=== PATIENT | female | born 1950 | race African-American/Black ===

== ENCOUNTER 2016-10-03 07:58 | Inpatient (IN) | payer OTHER ==
[2016-09-26 12:26] LABS: HEMATOCRIT 34.7 % (36.0-48.0); HEMOGLOBIN 11.1 g/dL (12.0-16.0)
[2016-09-26 12:45] LABS: CALCIUM, SERUM 9.5 MG/DL (8.5-10.4); CHLORIDE, SERUM 111 MMOL/L (96-112); CO2 (CARBON DIOXIDE) 29 MMOL/L (24-34); GFR AFRICAN AMERICAN 25 ML/MIN (>=60); GFR NON AFRICAN AMERICAN 21 ML/MIN (>=60); GLUCOSE, SERUM 99 MG/DL (60-99); POTASSIUM, SERUM 4.3 MMOL/L (3.5-5.3); SODIUM, SERUM 144 MMOL/L (135-148)
[2016-09-26 12:46] LABS: BUN (BLOOD UREA NITROGEN) 37 MG/DL (6-23); CREATININE 2.34 MG/DL (0.55-1.02)
--- NOTE | ~2016-10-03 | OP ---
Record Of Operation [facility] [address] [place]. [address] NAME: WALTER OBREGON : 54 STATUS : DIS IN PAT#: [id number] AGE: 66 ADM/REG DATE : 10/03/16 MR#: [id number] REPORT SERV DATE: 10/09/16 DICTATED BY: NETTIE WHITE II DATE: 10/09/16 REPORT STATUS : Draft TRANSCRIBED BY: MODL DATE: 10/09/16 DATE OF PROCEDURE: 10/03/2016 POSTOPERATIVE DIAGNOSES: 1. L4-5 grade 2/3 spondylolisthesis. 2. Left lower extremity radiculopathy. 3. Severe stenosis. POSTOPERATIVE DIAGNOSES: 1. L4-5 grade 2/3 spondylolisthesis. 2. Left lower extremity radiculopathy. 3. Severe stenosis. PROCEDURE: 1. Lumbar laminectomy and facetectomy, L4-L5. 2. Interbody arthrodesis, L4-L5. 3. Application of prosthetic device, L4-L5. 4. Posterolateral arthrodesis, L4-L5. 5. Posterior nonsegmental instrumentation, L4-5. 6. Use of local autograft, allograft substitute, and bone morphogenic protein. 7. Use of the microscope and stereotactic spinal imaging. SURGEON: Nettie White M.D. FLUIDS: 1700 mL LR. ESTIMATED BLOOD LOSS: 80 mL. DRAINS: One drain. COMPLICATIONS: None. ANTIBIOTIC: Preoperatively. IMPLANTS: Alphatec. PREOPERATIVE HISTORY: This is a friendly 66-year-old female, suffering with low back pain, predominantly pain radiating down the left leg consistent with radiculopathy. We discussed the pros and cons of surgery and the fact that the surgery had a good success rate for decreasing radiculopathy. We discussed the fact that it may decrease back pain to a certain degree, but overall the surgery was much more effective for radicular pain. She stated understanding and wished to proceed. DESCRIPTION OF PROCEDURE: After informed consent was obtained, the patient was brought to the operating room at her request, and general anesthesia was achieved. She was placed in the prone position. The back was prepped and draped in a sterile fashion. Stereotactic Record Of Operation [facility] [address] [place] [place]. [address] NAME: WALTER OBREGON : 54 STATUS : DIS IN PAT#: [id number] AGE: 66 ADM/REG DATE : 10/03/16 MR#: [id number] REPORT SERV DATE: 10/09/16 DICTATED BY: NETTIE WHITE II DATE: 10/09/16 REPORT STATUS : Draft TRANSCRIBED BY: MADISYN DATE: 10/09/16 spinal pin was placed into the right iliac crest followed by completion of the intraoperative CT scan. The minimally invasive retractor was placed on the left at L4-5. The hypertrophic facet was identified. The transverse processes were also dissected upon. The quadrant retractor system was now well established and the microscope brought into place. Under microscopic visualization, the complete facetectomy was performed and a [id number] decompression was achieved. The spinal laminar junction was also taken down to decompress the central canal. Overall, the degree of stenosis was severe, we did achieve some reduction of the spondylolisthesis with positioning, as well as manipulation during the instrumentation portion of the case. At this point, the L4 and L5 nerve roots were found to be acceptably decompressed. The L5 nerve root was then retracted and the interbody arthrodesis initiated with diskectomy. The endplates were prepared with the curettes and the leesa. The area was now irrigated and punctate bleeding bone was identified. At this point, the prosthetic device was then placed at L4-L5. We also placed local autograft, and bone morphogenic protein into the anterior disk space. At this point, the pedicle screws were applied into L4 and L5. Percutaneous screws were placed on the right side. The repeat CT scan confirmed acceptable placement of the implants. The final tightening was performed. Next, the decortication was performed on the transverse processes of L4 and L5 on the left. Local autograft, allograft substitute, and bone morphogenic protein were placed into the gutter. A deep drain was placed followed by standard closure, and the patient was extubated, and transferred to PACU in stable condition. CINDY/MADISYN Nettie White II, M.D. / [id number] CC: Nettie White II, M.D. Cherry Marquez M.D.
--- NOTE | ~2016-10-03 | DS ---
Discharge Summary [facility] [address] [place]. [address] NAME: WALTER OBREGON : 54 STATUS : DIS IN PAT#: [id number] AGE: 66 ADM/REG DATE : 10/03/16 MR#: [id number] REPORT SERV DATE: 10/12/16 DICTATED BY: NETTIE WHITE II DATE: 10/11/16 REPORT STATUS : Draft TRANSCRIBED BY: MODJonathan DATE: 10/11/16 Data Collection from hospitalization DISCHARGE DIAGNOSIS(ES): 1. L4-5 grade 2/3 spondylolisthesis. 2. Left lower extremity radiculopathy. 3. Severe stenosis. 4. Asthma. 5. History of congestive heart failure. 6. Gastroesophageal reflux disease. 7. Glaucoma. 8. Hypertension. 9. Osteoarthritis. 10.Rheumatoid arthritis. 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 CONSULTATIONS: None. PROCEDURES PERFORMED: Lumbar laminectomy and facetectomy, L4-L5; interbody arthrodesis, L4- L5; application of prosthetic device, L4-L5; posterolateral arthrodesis, L4-L5; posterior nonsegmental instrumentation, L4-5; use of local autograft, allograft substitute, and bone morphogenetic protein; use of the microscope and stereotactic spinal imaging, 10/03/2016. PATHOLOGY: Bone and soft tissue, lumbar spine, nonspecific degenerative changes. MEDICATIONS: Lipitor 20 mg every morning, Coreg 3.125 mg twice daily, Colace 100 mg twice daily, Pepcid 20 mg at bedtime, folic acid 800 mcg daily, Neurontin 600 mg twice daily, Neurontin 300 mg at 1400 hours, Plaquenil 400 mg daily, Robaxin 500 mg twice daily, methotrexate 15 mg every seven days on Fridays, metformin ER 500 mg with supper, Symbicort two puffs twice daily, Tylenol 500 mg every 6 hours as needed, Mylanta 30 mL as needed, Dulcolax 15 mg orally as needed, Valium 2 mg every four hours as needed, milk of magnesia 30 mL twice daily as needed, Percocet 5/325 one or two every 4 hours as needed, Hyzaar one daily, Bydureon extended release 2 mg subcutaneously every seven days on Mondays, and DuoNeb as needed. CONDITION AT DISCHARGE: Upon discharge, she did appear to be doing well and had no complaints. DISPOSITION: She had been discharged with transfer to [facility] to continue an ADA diet with activity as discussed. She was to continue with both Physical Therapy and Occupational Therapy. She was also to continue oxygen at 2 L by nasal cannula. She was to follow up as directed. HOSPITAL COURSE: This 66-year-old female had presented with complaints of lumbar related symptoms. Her initial onset began greater than five years ago with no known cause. She had stated that her symptoms had increased in the past two to three months. Her pain was located primarily in the low back with occasional pain radiating down her left lower extremity with tingling in her foot. She had rated her pain level at a 7/10. She denied Discharge Summary [facility] [id number] [facility] [place]. [address] NAME: WALTER OBREGON : 54 STATUS : DIS IN [facility]#: [id number] AGE: 66 ADM/REG DATE : 10/03/16 MR#: [id number] REPORT SERV DATE: 10/12/16 DICTATED BY: NETTIE WHITE II DATE: 10/11/16 REPORT STATUS : Draft TRANSCRIBED BY: MADISYN DATE: 10/11/16 any pain upon coughing, sneezing, fever, chills, and/or night sweats. She did report a time frame of one to two weeks where she would have to change her clothing three or more times a day due to losing her bowel or bladder. She stated her symptoms were worse at night. Lying on her left side and walking would increase her pain. Resting, changing her position, and medication would help her symptoms. At the time of admission, she had been taking Neurontin to help ease her pain. She has not had any recent treatment for current symptoms. She had an MRI of the lumbar spine done on [facility] on 08/09/2016. She was now admitted for surgery and further treatment. Upon admission to the hospital, she had been taken to the operating room where she did undergo the above procedure. She had tolerated this well and was transferred to the recovery room. On postop day #1, she did appear to be stable and had no complaints. She had been evaluated by Physical Therapy. On postop day #2, she did continue to do well and had no new complaints. She was continued on supportive care. On postop day #3, she had complaints of the expected postoperative pain and did continue to do well. Her Roberson catheter was removed. She did remain in stable condition and was then discharged with the above instructions. Information collected by: Baltazar King. I submit the above information as my discharge summary. MACRINA/CHELSEYL Nettie White II, M.D. / [id number] CC: Zaida Diego II, M.D. [facility]
[~2016-10-03 07:58] MED LIST: ACET500CAP PO; ADVAIR250 INH; AMARYL1 MG PO; AMARYL2 PO; BYDUREON2 MG SQ; CHERATUSSIN OR; COREG3 PO; DUONEB INH; FOLIC ACID800 MCG PO; GLUMETZA500 MG PO; HYZAAR 100/25 T1 TAB PO; LIPITOR20 PO; MTX2.5 PO; NASONEX NAS; NEUR300 PO; NOVOPEN SC; ORPHENADRINE100 MG PO; PLAQ200B PO; PROAIR HFA INH; RANITIDINE300 MG PO; SYMBICORT 160/41 INH INH; TRADJENTA
[2016-10-03 08:35] LABS: CALCIUM, SERUM 8.9 MG/DL (8.5-10.4); CHLORIDE, SERUM 111 MMOL/L (96-112); CO2 (CARBON DIOXIDE) 30 MMOL/L (24-34); GFR AFRICAN AMERICAN 34 ML/MIN (>=60); GFR NON AFRICAN AMERICAN 29 ML/MIN (>=60); GLUCOSE, SERUM 114 MG/DL (60-99); POTASSIUM, SERUM 4.2 MMOL/L (3.5-5.3); SODIUM, SERUM 146 MMOL/L (135-148)
[2016-10-03 08:36] LABS: BUN (BLOOD UREA NITROGEN) 21 MG/DL (6-23); CREATININE 1.79 MG/DL (0.55-1.02)
[2016-10-06] MEDS ORDERED: PCET PO (12:09)
[2016-10-06] MEDS ORDERED: V2 PO (12:09)
[2016-10-06] MEDS ORDERED: METHOC500B PO (12:09)
== END 2016-10-06 16:24 | DRG 460 ==
LOC: SDC/OF 07:58 → PACU 14:20 → 3SO 15:57
PROVIDERS: Orthopaedic Surgery
PROC: 0SG00AJ Fusion of Lumbar Vertebral Joint with Interbody Fusion Device, Posterior Approach, Anterior Column, Open Approach (ICD-10-PCS; principal; 2016-10-03 10:00)
PROC: 4A11X4G Monitoring of Peripheral Nervous Electrical Activity, Intraoperative, External Approach (ICD-10-PCS; 2016-10-03 10:00)
DX: M51.16 Intervertebral disc disorders with radiculopathy, lumbar region (principal)
CPT/HCPCS: 71010; 80048; 82962; 85014; 85018; 87641; 88304; 88311; 93005; 94640; 97116-GP; 97162-GP; A9270-GY; C1713; J0690; J1170; J2250; J2370; J2405; J2710; J3010; J3370; J8610